=== PATIENT | male | born 2005 | race Caucasian/White ===

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

== ENCOUNTER 2024-06-01 20:27 | Emergency (ER) | payer OTHER, SELFPAY ==
[2024-06-01 20:27] VITALS: BP 153/105; PULSE 130; RESP 24; TEMP 36.1; O2SAT 100; BMI 28.8
[2024-06-01 23:11] VITALS: BP 126/76; PULSE 78; RESP 17; TEMP 36.6; O2SAT 99
--- NOTE | 2024-06-01 23:11 | EDS_ITS ---
HPI History of Present Illness Chief Complaint: Substance Abuse Informant: patient and parent Narrative Narrative: Patient is a 18-year-old male who is otherwise healthy and denies any significant medical history. He states that today he drank a Mountain Dew and then an hour or so later had a ice handler 3 energy tablet. After taking this he began to feel his heart was racing and he felt jittery and nervous. He states that there was no illicit drug use or nicotine use. He denies any recent bouts of nausea vomiting diarrhea dysuria or blood loss. He denies any history of thyroid disorder. He states he waited a few hours to see if his symptoms would improve and they did not do so and therefore he comes in for evaluation [facility] Medical History no medical history Home Medications ?Medication ?Instructions ?Recorded ?Last Taken ?Type NK 06/01/24 Unknown History Allergy/AdvReac Type Severity Reaction Status Date / Time No Known Allergies Allergy Verified 06/01/24 20:27 Surgical History unable to obtain Social History Smoking Status: Current every day smoker tobacco type: e-cigarettes ROS ROS ED Constitutional Constitutional ED: Denies chills or fever(s) Eyes Eyes: Denies blurry vision or change in vision ENT ENT ED: Denies sore throat Cardiovascular Cardiovascular: Reports palpitations and racing heartbeat; Denies chest pain Respiratory/Chest Respiratory/Chest: Denies cough or dyspnea Gastrointestinal Gastrointestinal: Reports nausea; Denies abdominal pain, diarrhea or vomiting Genitourinary Genitourinary ED: Denies dysuria Musculoskeletal Musculoskeletal: Denies myalgias Integumentary Denies rash Neurologic Neurologic: Denies headache(s), paresthesias or weakness Hematologic/Lymphatic Hematologic/Lymphatic: Denies easy bleeding or easy bruising EXAM Physical Exam Const Vital Signs: 06/01/24 20:27 06/01/24 23:11 Temperature 97 F L 98 F Temperature Source Temporal Pulse Rate 130 H 78 Respiratory Rate 24 H 17 Blood Pressure 153/105 H 126/76 H Blood Pressure Mean 121 92 Pulse Ox 100 99 Positive well nourished and well developed General Appearance ED: well developed; Negative for pallor HEENT HEENT Narrative: Normocephalic atraumatic Eyes PERRL and EOMs intact bilaterally General Eye ED: Negative for pale conjunctiva or scleral icterus Neck supple and no JVD Neck Narrative: No nuchal rigidity or meningeal signs noted Chest Wall palpation of chest normal Resp normal respiratory effort and clear to auscultation bilaterally Cardio regular rate and regular rhythm Rate: other Other Details: Heart is regular rate and rhythm without murmurs rubs or gallop Radial and carotid pulses are equal and symmetric GI normal to inspection, nondistended, normoactive bowel sounds, non-tender, non- distended and no masses Auscultation: normoactive bowel sounds Palpation: soft Extremity normal to inspection Extremity Narrative: No asymmetric edema no pitting edema negative Homans' sign bilaterally Neuro oriented x3, CN's II-XII intact bilaterally and no sensory deficits noted Sensorium / Orientation: alert Motor Exam: strength 5/5 throughout Psych mental status grossly normal Skin no rashes or lesions noted General Skin Exam: Negative for jaundice or pallor MDM MDM MDM Narrative Medical decision making narrative: Patient reported Mountain Dew use followed by taking a [employer] 3 energy tablet which would have provided him with a roughly 300 to 500 mg of caffeine. His symptoms of palpitations and feeling jittery are consistent with excessive caffeine intake. He denies any potential for electrolyte abnormality as he states there is been no diarrhea or nausea/vomiting. Also there is low concern that the derangement to his vitals or symptoms related to acute blood loss anemia as he denies any hematemesis or hematuria. Patient also denies excessive stimulant use in the form of illicit drugs or nicotine. While the patient was waiting to be evaluated his blood pressure heart rate and breathing spontaneously improved indicating that he is now metabolizing the caffeine. Therefore at this time as vitals have spontaneous improved with passage of time indicating metabolism of the caffeine intake I do not feel there is need for testing or symptomatic care with fluids and benzodiazepines and is otherwise safe for discharge History & Record Review Discussion w/independent historian: Patient and Family Discharge Plan Triage Chief Complaint: Substance Abuse ED Provider: Kj Licea Dx/Rx/DC Orders Clinical Impression: Caffeine adverse reaction Instructions: Understanding Heart Palpitations, Understanding Tachycardia Prescriptions: No Action NK Primary Care Provider: Ashutosh Bernstein Referrals: Ashutosh Bernstein MD [Primary Care Provider] - Activity Restrictions/Additional Instructions: Your history and exam is consistent with adverse reaction to caffeine intake. Your body has metabolized the drug and now your vitals have stabilized. You do not have an abnormal heart rhythm. Please do not take caffeine and further as you are sensitive to it and keep yourself well-hydrated. Return to the ER should you have any further concerns Print Language: Citizen Of [place] Disposition Disposition: Home, Self Care Discharge Date/Time: 06/01/24 23:16
== END 2024-06-01 23:16 | disposition home or self-care (01) ==
LOC: ED 23:15
PROVIDERS: Emergency Provider Emergency Medicine; PCP Pediatrics; Visit Provider Emergency Medicine
DX: R00.0 Tachycardia, unspecified (principal); T43.615A Adverse effect of caffeine, initial encounter; R00.2 Palpitations; F17.290 Nicotine dependence, other tobacco product, uncomplicated
CPT/HCPCS: 99282